=== PATIENT | female | born 1980 | race Caucasian/White ===

== ENCOUNTER 2020-03-07 09:39 | Inpatient (IN) ==
[2020-03-07 12:08] LABS: Urine Appearance Cloudy; Urine Bilirubin Negative (Negative); Urine Blood Negative (Negative); Urine Color Amber; Urine Glucose Negative (Negative); Urine Ketones 1+ (Negative); Urine Nitrite Negative (Negative); Urine Protein 1+(30 mg/dL) (Negative); Urine Specific Gravity 1.026 (1.010-1.030); Urine Urobilinogen Negative (Negative)
[2020-03-07 12:22] LABS: Urine Bacteria Absent (Absent); Urine Red Blood Cell Absent (Absent); Urine Squamous Epithelial Cell Present (Absent); Urine White Blood Cell Trace(0-5/hpf) (Absent)
[2020-03-07 12:30] LABS: Urine Benzodiazepine Screen None Detected (None Detect); Urine Cannabinoids Screen Presumptive Positive (None Detect); Urine Opiates Screen None Detected (None Detect)
[2020-03-07 13:47] LABS: Hematocrit 33 % (35-47); Mean Corpuscular HGB Conc 34 g/dL (31-36); Mean Corpuscular Hemoglobin 29 pg (27-31); Mean Corpuscular Volume 85 fL (80-97); Red Cell Distribution Width 16 % (10-15); White Blood Count 8.7 10^3/uL (3.5-10.8)
[2020-03-07 13:55] LABS: ALT 32 U/L (7-52); Albumin 4.2 g/dL (3.2-5.2); Albumin/Globulin Ratio 1.4 (1-3); Alkaline Phosphatase 107 U/L (34-104); BUN/Creatinine Ratio 9.1 (8-20); Blood Urea Nitrogen 6 mg/dL (6-24); CO2 Carbon Dioxide 20 mmol/L (22-32); Calcium 9.4 mg/dL (8.6-10.3); Chloride 109 mmol/L (101-111); EGFR African American 121.9 (>60); EGFR Non-African American 100.8 (>60); Glucose 87 mg/dL (70-100); Sodium 138 mmol/L (135-145); Total Protein 7.2 g/dL (6.4-8.9)
[2020-03-07 14:02] LABS: HCG Pregnancy < 0.60 mIU/mL
[2020-03-07 14:09] LABS: Acetaminophen < 15 mcg/mL; Alcohol, S < 10 mg/dL (<10); Salicylate < 2.50 mg/dL (<30)
[2020-03-07 14:19] LABS: Anion Gap 9 mmol/L (2-11)
[2020-03-07 14:23] LABS: ABS Basophils 0.1 10^3/ul (0-0.2); ABS Eosinophils 0.1 10^3/ul (0-0.6); ABS Monocytes 0.3 10^3/ul (0-0.8); ABS Neutrophils 5.2 10^3/ul (1.5-7.7); Eosinophil % 1.4 %; Lymphocyte % 34.5 %; Mean Platelet Volume 9.8 fL (7.4-10.4); Nucleated Red Blood Cells % 0.1; Platelet Count 252 10^3/uL (150-450); TSH Ultra Thyroid Stim Horm 1.09 mcIU/mL (0.34-5.60)
[2020-03-07 15:48] LABS: Potassium Redraw 3.3 mmol/L (3.5-5.0)
[2020-03-07] MEDS ORDERED: Al Hydrox/Mg Hydrox/Simet LIQ 30 ML UDC PO PRN (18:52)
[2020-03-08] MEDS: Vitamin THERAPEUTIC TAB PO SCH ×2 (07:48→07:51)
[2020-03-08] MEDS: Lamotrigine XR 50 mg TAB (NF) PO SCH (08:41)
[2020-03-08] MEDS ORDERED: Albuterol HFA INHALER 8 gm MDI INH PRN (19:41)
[2020-03-08] MEDS ORDERED: Nicotine GUM 2MG FRUIT FLAVOR PO PRN (19:41)
[2020-03-08] MEDS ORDERED: Haloperidol 5 mg/ml SDV IV/IM 5 MG/ML AMP ONE (20:16)
[2020-03-08] MEDS ORDERED: LORazepam 2 mg VIAL 1 ml ONE (20:17)
[2020-03-09] MEDS: Lamotrigine XR 50 mg TAB (NF) PO SCH (10:22)
[2020-03-09] MEDS: Vitamin THERAPEUTIC TAB PO SCH (13:10)
[2020-03-10] MEDS: Vitamin THERAPEUTIC TAB PO SCH (08:50)
[2020-03-10] MEDS: Lamotrigine XR 50 mg TAB (NF) PO SCH (08:50)
[2020-03-10] MEDS ORDERED: Naltrexone INJ 380 MG IM ONE (14:00)
[2020-03-11] MEDS: Vitamin THERAPEUTIC TAB PO SCH (08:20)
[2020-03-11] MEDS: Nicotine PATCH 14 MG/24 HR PATCH TRANSDERM PRN (15:41)
[2020-03-12] MEDS: Nicotine PATCH 14 MG/24 HR PATCH TRANSDERM PRN (07:40)
[2020-03-12] MEDS: Vitamin THERAPEUTIC TAB PO SCH (08:27)
[2020-03-12 09:04] LABS: HDL Cholesterol 50.3 mg/dL
[2020-03-13 09:26] VITALS: BP 104/70
[2020-03-13] MEDS: Nicotine PATCH 14 MG/24 HR PATCH TRANSDERM PRN (09:29)
[2020-03-13] MEDS: Vitamin THERAPEUTIC TAB PO SCH (09:29)
[2020-03-13 12:15] LABS: Lithium 0.36 mmol/L (0.6-1.2)
== END 2020-03-13 14:35 | disposition home or self-care (01) | DRG 753 ==
LOC: ED 09:39 → BSU 18:52
PROVIDERS: ADMIT Psychiatry & Neurology Psychiatry; ATTEND Psychiatry & Neurology Psychiatry